=== PATIENT | male | born 1980 | race Caucasian/White ===

== ENCOUNTER 2016-05-13 17:33 | Emergency (ER) | payer SELFPAY ==
[~2016-05-13 17:33] MED LIST: HYDR-3533 PO; IBUP-238 PO; IBUP600 PO
[2016-05-13 17:38] VITALS: BP 115/73; PULSE 97; RESP 20; TEMP 97.4; O2SAT 100
[2016-05-13] MEDS ORDERED: oxyCODONE/ACETAMINOPHEN 5 MG/325 MG TAB PO ONE (17:45)
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
--- NOTE | 2016-05-13 18:37 | RADHPO ---
EXAM DATE/TIME: 05/13/2016 17:41 [facility] COMPARISON: No previous studies available for comparison. INDICATIONS : Complains of right knee pain after twisting knee. MEDICAL HISTORY : None. SURGICAL HISTORY : None. ENCOUNTER: Initial ACUITY: 1 day PAIN SCORE: 10/10 LOCATION: Right knee FINDINGS: Four view examination of the right knee demonstrates no evidence of fracture or dislocation. Bony mi neralization is normal. The articular surfaces are intact. There is a 2 mm metallic density seen ad jacent to the anterior superior aspect of the patella in the superficial soft tissues. This appears t o be superficial to the quadriceps tendon in the subcutaneous fat. No effusion is seen. CONCLUSION: 2 mm metallic density in the superficial soft tissues anteriorly. Neno Vincent MD on May 13, 2016 at 18:33 Board Certified Radiologist. This report was verified electronically.
[2016-05-13] MEDS ORDERED: NAPR500 PO (18:41)
[2016-05-13] MEDS ORDERED: HYDR-3533 PO (18:41)
== END 2016-05-13 19:15 | disposition home or self-care (01) ==
LOC: PHEFT 17:33
DX: S83.91XA Sprain of unspecified site of right knee, initial encounter (principal); F17.210 Nicotine dependence, cigarettes, uncomplicated; W22.8XXA Striking against or struck by other objects, initial encounter; Y93.89 Activity, other specified; Y92.69 Other specified industrial and construction area as the place of occurrence of the external cause; Y99.0 Civilian activity done for income or pay
CPT/HCPCS: 73564; 99283; E0113; L1830

== ENCOUNTER 2016-07-31 08:13 | Emergency (ER) | payer SELFPAY ==
[~2016-07-31] VITALS: Ht 165.1 cm; Wt 63.5 kg
[~2016-07-31 08:13] MED LIST changes: -IBUP-238 PO; -IBUP600 PO; +NAPR500 PO
[2016-07-31 08:15] VITALS: BP 120/69; PULSE 88; RESP 20; TEMP 97.9; O2SAT 100
[2016-07-31] MEDS ORDERED: SODIUM CHLOR 0.9% 1000 ML INJ 1,000 ML IV SCH (08:35)
[2016-07-31] MEDS ORDERED: SODIUM CHLORIDE 0.9% FLUSH 10 ML FLUSH IV FLUSH PRN (08:45)
[2016-07-31] MEDS ORDERED: ONDANSETRON HCL 4 MG/2 ML VIAL IVP ONE (08:45)
[2016-07-31] MEDS ORDERED: VANCOMYCIN INJ 950 MG in SODIUM CHLOR 0.9% 250 ML INJ 250 ML IV ONE (08:45)
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
[2016-07-31 09:04] LABS: BASOPHIL # 0.1 TH/MM3 (0-0.2); BASOPHIL % 0.5 % (0.0-2.0); EOSINOPHIL # 0.1 TH/MM3 (0-0.4); EOSINOPHIL % 1.1 % (0.0-4.0); HEMATOCRIT 30.6 % (39.0-51.0); HEMO FLAGS DIFF FINAL; LYMPH % 20.7 % (9.0-44.0); LYMPHOCYTE # 2.1 TH/MM3 (1.0-4.8); MEAN CELL VOLUME 87.4 FL (80.0-100.0); MEAN CORPUSCULAR HGB CONC 34.4 % (32.0-36.0); MONO % 7.6 % (0.0-8.0); NEUT % 70.1 % (16.0-70.0); PLATELET COUNT 261 TH/MM3 (150-450); RED BLOOD COUNT 3.51 MIL/MM3 (4.50-5.90); RED CELL DISTRIBUTION WIDTH 12.7 % (11.6-17.2)
[2016-07-31 09:05] LABS: INTERNATIONAL NORMALIZED RATIO 0.9 RATIO; PROTHROMBIN TIME - PATIENT 10.4 SEC (9.8-11.6)
[2016-07-31 09:16] LABS: ANION GAP 5 MEQ/L (5-15); AST (GOT) 49 U/L (15-37); BLOOD UREA NITROGEN 11 MG/DL (7-18); CHLORIDE 107 MEQ/L (98-107); GLOMERULAR FILTRATION RATE 117 ML/MIN (>89); POTASSIUM 4.4 MEQ/L (3.5-5.1); SODIUM (NA) 141 MEQ/L (136-145)
[2016-07-31 09:19] LABS: ALKALINE PHOSPHATASE 72 U/L (45-117); ALT (GPT) 35 U/L (12-78); TOTAL BILIRUBIN ADULT 0.3 MG/DL (0.2-1.0)
--- NOTE | 2016-07-31 09:58 | RADRPT ---
EXAM DATE/TIME: 07/31/2016 09:45 [facility] COMPARISON: No previous studies available for comparison. INDICATIONS : Spider bite on right medial surface of lower leg MEDICAL HISTORY : None. SURGICAL HISTORY : None. ENCOUNTER: Initial ACUITY: 1 day PAIN SCORE: Non-responsive. LOCATION: Right medial lower leg FINDINGS: Two view examination of the right tibia demonstrates no evidence of fracture or dislocation. Bony mi neralization is normal. There is soft tissue swelling over the medial mid leg with no radiopaque fore ign body. CONCLUSION: Soft tissue swelling with no radiopaque foreign body. Alexey Harman MD on July 31, 2016 at 9:56 Board Certified Radiologist. This report was verified electronically.
[2016-07-31 10:15] VITALS: BP 98/58; PULSE 65; RESP 16; O2SAT 98
[2016-07-31] MEDS ORDERED: BACT800T5 PO (11:15)
[2016-07-31] MEDS ORDERED: IBUP-232 PO (11:15)
[2016-07-31] MEDS ORDERED: CEPH-460 PO (11:15)
[2016-07-31 12:00] VITALS: BP 100/60; PULSE 65; RESP 16; O2SAT 98
== END 2016-07-31 12:09 | disposition home or self-care (01) ==
LOC: NEPE 08:13
DX: L02.415 Cutaneous abscess of right lower limb (principal); L03.115 Cellulitis of right lower limb; D64.9 Anemia, unspecified; E86.0 Dehydration; F17.210 Nicotine dependence, cigarettes, uncomplicated; F12.90 Cannabis use, unspecified, uncomplicated
CPT/HCPCS: 73590; 80053; 85025; 85610; 85730; 96365; 96375; 99284; J2405; J3370; J7030; J7050